=== PATIENT | female | born 1990 | race Caucasian/White ===

== ENCOUNTER 2022-11-05 02:19 | Inpatient (IN) | payer BC, OTHER ==
[2022-11-05] MEDS ORDERED: SOD CITRATE-CITRIC ACID SOLN ONE (04:24)
[2022-11-05] MEDS ORDERED: CLINDAMYCIN-D5W 900 MG/50 ML*** 900 MG/50 ML BAG IV ONE ×2 (04:24→07:00)
[2022-11-05] MEDS ORDERED: Reglan 10 MG/2 ML ONE (04:24)
[2022-11-05] MEDS ORDERED: Pepcid 20 MG VIAL IV ONE (04:24)
[2022-11-05] MEDS ORDERED: Zofran 4 MG/2 ML VIAL IV PRN (05:00)
[2022-11-05 05:40] LABS: Hematocrit 28.8 % (35-47); Hemoglobin 9.1 g/dL (12.0-16.0); Mean Cell Volume 84.5 fL (78-100); Mean Corpuscular Hemoglobin 26.7 pg (26-32); Mean Corpuscular Hgb Concent. 31.6 g/dL (32-36); Mean Platelet Volume 11.1 fL (7.5-11.0); Platelet Count 283 x10^3/uL (150-450); Red Blood Count 3.41 x10^6/uL (4.1-5.4); Red Cell Distribution Width 16.5 % (11.5-14.0); White Blood Count 9.2 x10^3/uL (4.0-10.5)
[2022-11-05 05:48] LABS: INR 0.97 (0.8-3.0); PROTIME 10.3 SECONDS (9.4-12.5); PTT 25.8 SECONDS (25.1-36.5)
[2022-11-05 06:04] LABS: Amphetamine,Urine NEGATIVE (NEGATIVE); Barbiturate,Urine NEGATIVE (NEGATIVE); Benzodiazepine,Urine NEGATIVE (NEGATIVE); Cocaine,Urine NEGATIVE (NEGATIVE); Methadone,Urine NEGATIVE (NEGATIVE); Opiate,Urine NEGATIVE (NEGATIVE); PCP,Urine NEGATIVE (NEGATIVE); THC,Urine NEGATIVE (NEGATIVE)
[2022-11-05 06:26] LABS: Appearance Cloudy (Clear); Bacteria Many /HPF (None Seen); Bilirubin Negative (Negative); Blood Negative (Negative); Epithelial Cells Moderate /HPF (None Seen); Glucose, Urine Negative (Negative); Ketones 15 (Negative); Leukocyte Esterase Large (Negative); Nitrite Negative (Negative); Ph 6.5 (4.6-8.0); Protein,Urine Dip Trace (Negative); RBC 0-2 /HPF (0-5); WBC 51-100 /HPF (0-5)
[2022-11-05 06:27] LABS: ADD URINE CULTURE? YES (NO)
[2022-11-05 06:28] LABS: ABO TYPING O; RH TYPING POSITIVE
[2022-11-05 06:41] LABS: Antibody Screen NEGATIVE (NEGATIVE)
[2022-11-05] MEDS ORDERED: Lactated Ringers 1,000 ML IV ONE ×2 (07:00→08:42)
[2022-11-05] MEDS ORDERED: Reglan 10 MG/2 ML IV SCH (07:00)
[2022-11-05] MEDS ORDERED: SOD CITRATE-CITRIC ACID SOLN PO SCH (07:00)
[2022-11-05] MEDS ORDERED: Lactated Ringers 1,000 ML IV SCH (07:00)
[2022-11-05] MEDS ORDERED: Pepcid 20 MG VIAL IV SCH (07:00)
[2022-11-05] MEDS ORDERED: Astramorph-Pf 5 MG/10 ML ONE (07:57)
[2022-11-05] MEDS ORDERED: Sodium Chloride 0.9% 10 ML FLUSH Syringe IV PRN (08:00)
[2022-11-05] MEDS ORDERED: PHENYLEPHRINE HCL ONE (08:29)
[2022-11-05] MEDS ORDERED: Pitocin 10 UNITS/ML ONE ×2 (08:37→08:38)
[2022-11-05] MEDS ORDERED: DEXMEDETOMIDINE 80 MCG/20ML-NS IV ONE (08:51)
[2022-11-05] MEDS ORDERED: Decadron 4 MG INJ ONE (08:51)
[2022-11-05] MEDS ORDERED: Marcaine 0.5%/Epinephrine 10 ML ONE (08:51)
[2022-11-05] MEDS ORDERED: BENADRYL 50 MG/ML IV PRN (10:00)
[2022-11-05] MEDS ORDERED: HOLD NARCOTIC ANALGESICS AND SEDATIVES X24 HR MC PRN (10:00)
[2022-11-05] MEDS ORDERED: CORTISONE 1% CREAM TP PRN (10:00)
[2022-11-05] MEDS ORDERED: Mylicon 80MG PO PRN (10:00)
[2022-11-05] MEDS ORDERED: FERREX 150 PO SCH (10:00)
[2022-11-05] MEDS ORDERED: DEMEROL 50 MG IV PRN (10:00)
[2022-11-05] MEDS ORDERED: PERCOCET TABLET 5/325MG PO PRN (10:00)
[2022-11-05] MEDS ORDERED: MORPHINE SULFATE 2 MG INJ IV PRN (10:00)
[2022-11-05] MEDS ORDERED: CLARITIN 10 MG PO PRN (10:00)
[2022-11-05] MEDS ORDERED: Anucort-HC SUPPOSITORY PR PRN (10:00)
[2022-11-05] MEDS ORDERED: Nubain 10 MG/ML IV PRN (10:00)
[2022-11-05] MEDS ORDERED: Narcan 0.4 MG/ML IV PRN (10:00)
[2022-11-05] MEDS ORDERED: LANSINOH 40 GM TOP PRN (10:16)
[2022-11-05] MEDS ORDERED: NORCO 5/325 MG PO PRN (10:16)
[2022-11-05] MEDS ORDERED: Dermoplast Spray TP PRN (10:16)
[2022-11-05] MEDS ORDERED: TYLENOL EXTRA STRENGTH 500 MG PO PRN (10:16)
[2022-11-05] MEDS: Dextrose 5%-Lr IV Solution 1000 ML 1,000 ML IV SCH ×2 (10:43→17:17)
[2022-11-05] MEDS ORDERED: ENOXAPARIN SODIUM SQ ONE (11:02)
[2022-11-05 11:57] LABS: Appearance Cloudy (Clear); Bacteria None Seen /HPF (None Seen); Bilirubin Negative (Negative); Blood NHT (Negative); Epithelial Cells None Seen /HPF (None Seen); Glucose, Urine Negative (Negative); Hyaline Casts NONE SEEN /LPF (0-2); Ketones 40 (Negative); Leukocyte Esterase Negative (Negative); Nitrite Negative (Negative); Ph 6.5 (4.6-8.0); Protein,Urine Dip Trace (Negative); Specific Gravity 1.025 (1.005-1.030)
--- NOTE | 2022-11-05 13:02 | OP ---
SURGERY DATE/TIME: 11/05/2022 0805 PREOPERATIVE DIAGNOSES: 1) History of prior section. 2) Term intrauterine . 3) Term gestation. 4) Gestational diabetes. 5) Elevated blood pressure in without the diagnosis of hypertension. POSTOPERATIVE DIAGNOSES: 1) History of prior section. 2) Term intrauterine . 3) Term gestation. 4) Gestational diabetes. 5) Elevated blood pressure in without the diagnosis of hypertension. PROCEDURE: Repeat low transverse section. SURGEON: Braden Argueta M.D. ANESTHESIA: Spinal by Luis Calix CRNA. QUANTITATIVE BLOOD LOSS: 800 ml. IV FLUIDS: 800 ml of crystalloid. URINE OUTPUT: 200 ml of clear straw-colored urine. SPECIMENS: Placenta sent for pathology x2. DESCRIPTION OF PROCEDURE: After informed written consent was obtained, the patient was taken to the operating room. She underwent spinal anesthesia and was prepped and draped in the usual sterile fashion after Banda catheter was inserted. After adequate level of anesthesia was assessed, a low transverse skin incision was made by knife and carried through the subcutaneous fat to the level of the fascia. The fascia was nicked on both sides of the midline extended in horizontal using curved Ambrosio scissors. The superior free edge of the fascia was then grasped with Beatriz clamps and the underlying rectus muscles were dissected free. The same was repeated inferiorly. The peritoneal cavity was opened and extended in horizontal in blunt fashion. Bladder flap was created and reflected over the lower uterine segment. A horizontal uterine incision was made by knife and carried down to the level of the amniotic membranes which were carefully artificially ruptured on baby "A" first who was in vertex presentation female infant with a strong cry immediately upon delivery. Oropharynx and nares bulb suctioned free. Cord was clamped and cut and she was handed off to awaiting nursery team. Next, baby "B" amniotic membranes were artificially ruptured. She was delivered from the breech presentation. Again, strong cry was immediately present upon delivery. Oropharynx and nares were bulb suctioned free. Cord was clamped and cut and she was handed off to the awaiting nursey team. Both placentas were manually extracted and sent for pathology testing. The uterus was then exteriorized and the uterine cavity was sponge curetted clean with lap sponge. The uterine incision closed with #1 chromic in a running locked fashion with good closure and good hemostasis. The posterior cul-de-sac was wiped free of blood and clot. Again, the uterine incision was inspected and noted to be hemostatic with good closure. The uterus was returned to the peritoneal cavity. Lateral gutters were wiped free of blood and clot. The uterine incision was again inspected and noted to be hemostatic with good closure. Next, the rectus muscles were approximated at the midline and peritoneum was closed using #1 chromic with good closure and good hemostasis achieved at that level. The subcutaneous layer was closed with 0 Vicryl in running fashion. Good closure and good hemostasis were achieved at that level. The subcutaneous fat was irrigated with warm, sterile saline and any areas of bleeding were cauterized with electrocautery. Finally, the subcutaneous fat was closed with 3-0 Vicryl in interrupted fashion. Again, good closure and good hemostasis were achieved. Dissolvable abdiaziz were used to reapproximate the skin with good closure at that level. Dermabond was placed over the incision. Steri-Strips were placed after the Dermabond dried and dressing was placed over the incision. The patient was transferred to the recovery room in good condition.
[2022-11-05] MEDS: CLINDAMYCIN-D5W 600 MG/50 ML*** 600 MG/50 ML BAG IV SCH (16:41)
[2022-11-05] MEDS: MOTRIN 400 MG PO PRN (21:12)
[2022-11-05] MEDS: Docusate Sodium 100 MG PO SCH (21:17)
[2022-11-06] MEDS: CLINDAMYCIN-D5W 600 MG/50 ML*** 600 MG/50 ML BAG IV SCH (01:01)
[2022-11-06] MEDS: Dextrose 5%-Lr IV Solution 1000 ML 1,000 ML IV SCH (03:08)
[2022-11-06 05:32] LABS: Absolute Neutrophil Ct (ANC) 8.04 x10^3/uL (1.4-6.9); BASOPHIL % 0.3 % (0.0-0.4); Basophil (Absolute #) 0.03 x10^3/uL (0-0.4); Eosinophil % 0.2 % (0.00-5.0); Eosinophil (Absolute #) 0.02 x10^3/uL (0-0.5); Hemoglobin 8.2 g/dL (12.0-16.0); IMMATURE GRAN # 0.07 x10^3u/L (0.00-0.03); IMMATURE GRAN % 0.6 % (0.00-0.4); Lymphocyte (Absolute #) 2.34 x10^3/uL (1.0-4.6); Mean Cell Volume 82.5 fL (78-100); Mean Corpuscular Hemoglobin 27.1 pg (26-32); Mean Corpuscular Hgb Concent. 32.8 g/dL (32-36); Mean Platelet Volume 11.1 fL (7.5-11.0); Monocyte (Absolute #) 0.63 x10^3/uL (0.0-1.3); Monocytes % 5.7 % (0.0-12.0); Neutrophil % 72.2 % (36.0-66.0); Platelet Count 274 x10^3/uL (150-450); Red Blood Count 3.03 x10^6/uL (4.1-5.4); Red Cell Distribution Width 16.6 % (11.5-14.0); White Blood Count 11.1 x10^3/uL (4.0-10.5)
[2022-11-06] MEDS ORDERED: ENOXAPARIN SODIUM SQ ONE (09:00)
[2022-11-06] MEDS: Docusate Sodium 100 MG PO SCH ×2 (09:01→20:50)
[2022-11-06] MEDS ORDERED: Dulcolax 10 MG SUPP PR PRN (10:00)
[2022-11-06] MEDS ORDERED: FERREX 150 PO SCH (10:00)
[2022-11-06] MEDS ORDERED: DEMEROL 50 MG IV PRN (10:00)
[2022-11-06] MEDS ORDERED: Adacel Vial IM ONE (10:16)
[2022-11-06 11:19] LABS: HBsAg Screen Negative (Negative)
[2022-11-06] MEDS: MOTRIN 400 MG PO PRN (13:31)
[2022-11-06] MEDS: NORCO 5/325 MG PO PRN (20:50)
[2022-11-06] MEDS ORDERED: THERAGRAN MULTIVITAMIN PO SCH (22:00)
[2022-11-07] MEDS: MOTRIN 400 MG PO PRN (00:01)
[2022-11-07] MEDS: NORCO 5/325 MG PO PRN (03:51)
[2022-11-07 04:07] VITALS: O2SAT 100
--- NOTE | 2022-11-07 07:36 | PCM.NOTE ---
Date and Time: 11/07/2234 Subjective Assessment: pod 2 sp csection pt resting in bed able to ambulate and tolerate diet. vss afebrile abd; soft incision with dressing intact with no soiling uterus; firm lochia; mild a/p sp csection pod 2 will dc home today should fu office next thursday for incision check. OBJECTIVE DATA Vital Signs: Vital Signs - 24 hr Temp Pulse Resp BP Pulse Ox 11/07/22 03:50 98.7 F 65 17 120/73 100 11/06/22 20:15 97.7 F 85 18 113/64 98 11/06/22 14:00 97.5 F 75 18 124/66 11/06/22 08:00 97.6 F 72 18 105/51 Pain Assessment - Last Documented Pain Intensity [Anterior] 5 Pain Intensity 1 Pain Scale Used 0-10 Pain Scale Intake and Output: Intake & Output 11/04/22 11/05/22 11/06/22 11/07/22 11:59 11:59 11:59 11:59 Intake Total 1000 3765 1760 Output Total 3050 Balance 7559 581 2133 Weight 154.675 kg Lab Results: Lab Results-Last 24 Hours 11/05/22 Range/Units 05:10 Hep Bs Antigen Negative (Negative) Assessment/Plan (1) Status post repeat low transverse section Current Visit: Yes Status: Acute Code(s): Z98.891 - HISTORY OF UTERINE SCAR FROM PREVIOUS SURGERY
--- NOTE | 2022-11-07 07:42 | PCM.DS ---
Discharge Summary Date of Admission: 11/05/22 04:42 Admitting Physician: URBAN OLGUIN Consults: Consults on Case 11/04/22 10:17 Notify Anesthesia Provider PRN 11/05/22 10:00 Notify Physician ROUTINE 11/06/22 08:00 Navigation ONCE Primary Care Provider: URBAN OLGUIN Allergies Allergies amoxicillin Allergy (Unknown, Verified 11/05/22 05:20) Hives cefaclor [From Ceclor] Allergy (Unknown, Verified 11/05/22 05:20) [facility] Summary - Hospital Course Hospital Course: pt was at 37 plus weeks gestation with gest htn twin gestation admitted for repeat csection and was done so without complication on nov 05. pt delivered live twin girls without complication. during postop period did well had stable hgb at 8.2 and at this time stable for discharge. pt able to ambulate and tolerate diet. pt advised to fu in office next thursday for incision check. all questions answered to her satisfaction. pt was given norco for pain management. - Vitals & Intake/Output Vital Signs: Vital Signs Temperature 98.7 F 11/07/22 03:50 Pulse Rate 65 11/07/22 03:50 Respiratory Rate 17 11/07/22 03:50 Blood Pressure 120/73 11/07/22 03:50 O2 Sat by Pulse Oximetry 100 11/07/22 03:50 Intake & Output: Intake & Output 11/04/22 11/05/22 11/06/22 11/07/22 11:59 11:59 11:59 11:59 Intake Total 1000 3765 1760 Output Total 3050 Balance 9095 621 7958 Weight 154.675 kg - Lab Result Diagrams: 11/06/22 05:39 Lab Results-Last 24 Hrs: Lab Results-Last 24 Hours 11/05/22 Range/Units 05:10 Hep Bs Antigen Negative (Negative) Micro Results-Entire Visit: Microbiology 11/05/22 08:32 Urine Culture - Preliminary Catherized NO GROWTH TO DATE 11/05/22 05:00 Urine Culture - Final Clean Catch Midstream <10K NORMAL SKIN LEWIS PROBABLE SKIN CONTAMINANT - Procedures and Test Procedures and Tests throughout Hospitalization: Therapy Orders & Screens 11/05/22 10:07 Standby STAT Comment: Diagnosis: MONI REPEAT C/S-TWIN GESTATION WITH GHTN Final Diagnosis/Problem List - Final Discharge Diagnosis/Problem (1) Status post repeat low transverse section Current Visit: Yes Status: Acute Code(s): Z98.891 - HISTORY OF UTERINE SCAR FROM PREVIOUS SURGERY - Discharge Disposition: Home, Self-Care Condition: Stable Prescriptions: New Hydrocodone/Acetaminophen [Hydrocodone-Acetamin 5-325 mg] 1 tab PO Q6HPRN PRN #20 tablet MDD 4 PRN Reason: Pain No Action Vit No.179/Iron/Folic [ Tablet] 1 each PO HS Metformin HCl 500 mg [Glucophage 500 MG] 500 mg PO HS Ferrous Sulfate 325 mg [Feosol 325 mg] 325 mg PO BID Follow up with: URBAN OLGUIN MD [Primary Care Provider] - 1 Week (should fu next thursday for incision check)
[2022-11-07 11:32] VITALS: BP 138/72; PULSE 74
== END 2022-11-07 10:55 | disposition home or self-care (01) | DRG 788 ==
LOC: OB 04:42
PROVIDERS: ADMIT Family Medicine; ATTEND Family Medicine
PROC: 10D00Z1 Extraction of Products of Conception, Low, Open Approach (ICD-10-PCS; principal; 2022-11-05)
DX: O13.4 Gestational [pregnancy-induced] hypertension without significant proteinuria, complicating childbirth (principal); O24.429 Gestational diabetes mellitus in childbirth, unspecified control; Z3A.37 37 weeks gestation of pregnancy; Z37.2 Twins, both liveborn; Z20.828 Contact with and (suspected) exposure to other viral communicable diseases; Z98.891 History of uterine scar from previous surgery
CPT/HCPCS: 36415; 64488; 76937; 76942; 80307; 81001; 85025; 85027; 85610; 85730; 86850; 86900; 86901; 87086; 87340; 94799; 96372; J1100; J1650; J2274; J2370; J2405; J2590; L0625; A9270-GY

== ENCOUNTER 2023-10-28 09:53 | Day surgery (SDC) | payer BC ==
[2023-10-28] MEDS ORDERED: Sodium Chloride 0.9(Preservative Free) 10 ML IJ ONE (09:54)
[2023-10-28] MEDS ORDERED: Depo-Medrol 40 MG/ML IM ONE (09:54)
[2023-10-28 10:44] LABS: HCG URINE TEST NEGATIVE (NEGATIVE)
[2023-10-28] MEDS ORDERED: DIPRIVAN 200 MG/20 ML IV ONE (12:16)
--- NOTE | 2023-10-28 13:10 | XRAY ---
Indication: Caudal OMER. Intraoperative fluoroscopy provided for 20 seconds. 2 digital spot image submitted for interpretation demonstrates caudal needle tip projecting mid sacrum. Small amount of contrast injected for needle tip placement. Correlate with intraoperative findings/report.
[2023-10-28] MEDS ORDERED: Lactated Ringers 1,000 ML IV ONE (13:40)
--- NOTE | 2023-10-28 13:47 | XRAY ---
20 seconds of fluoroscopy was used in surgery for a caudal OMER.
== END 2023-10-28 12:51 | disposition home or self-care (01) ==
LOC: SDC-PAIN 09:53
PROVIDERS: ATTEND Psychiatry & Neurology Pain Medicine
DX: M54.16 Radiculopathy, lumbar region (principal)
CPT/HCPCS: 62323; 72220; 77003; 81025; J1030; J2704; Q9966